=== PATIENT | female | born 1955 | race Two or more races ===

== ENCOUNTER 2017-07-14 07:23 | Day surgery (SDC) | payer BC ==
[2017-07-14] VITALS (17 sets, daily range): BP systolic 109–198; BP diastolic 55–92
[~2017-07-14] VITALS: Ht 152.4 cm; Wt 60.9 kg
[~2017-07-14 07:23] MED LIST: DIPH-423 PO; ERGO500014 PO; FOLI0.8T19 PO; INSU100V9 SQ; METO-411 PO; PRO30XLT PO
[2017-07-14] MEDS ORDERED: normal saline 1000ml 1,000 ML IV PRN (07:45)
[2017-07-14] MEDS ORDERED: FOLI0.8T7 PO (07:56)
[2017-07-14] MEDS ORDERED: CALC668T PO (08:00)
[2017-07-14] MEDS ORDERED: GABA100C PO (08:01)
[2017-07-14] MEDS ORDERED: LOSA25TA96 PO (08:03)
[2017-07-14] MEDS ORDERED: LIDOcaine 1%/PF (10mg/ml) 5ml vial SQ ONE (08:30)
[2017-07-14] MEDS ORDERED: heparin 1,000 UNITS/NS 500ml 500 ML ICATH ONE (08:30)
[2017-07-14] MEDS ORDERED: midazolam 2 mg/2 ml injection IV PRN (08:30)
[2017-07-14] MEDS ORDERED: fentaNYL/PF 50MCG/1 ML 2ML syringe IV PRN (08:30)
[2017-07-14] MEDS ORDERED: iohexol 300mg/ml 100ml inj. ONE (08:34)
[2017-07-14 08:48] LABS: BASOPHILS % (AUTO) 0.3 % (0-1); EOSINOPHILS # (AUTO) 0.3 X10'3 (0-0.9); EOSINOPHILS % (AUTO) 6.1 % (0-6); HEMATOCRIT 39.2 % (35.0-45.0); HEMOGLOBIN 13.4 g/dl (12.0-16.0); LYMPHOCYTES # (AUTO) 1.1 X10'3 (1.1-4.8); LYMPHOCYTES % (AUTO) 20.4 % (21-51); MEAN CORPUSCULAR HEMOGLOBIN 33.1 PG (27.0-31.0); MEAN CORPUSCULAR HGB CONC 34.2 % (33.0-36.5); MEAN CORPUSCULAR VOLUME 96.9 FL (78-98); MEAN PLATELET VOLUME 8.5 FL (7.4-10.4); MONOCYTES # (AUTO) 0.3 X10'3 (0-0.9); MONOCYTES % (AUTO) 6.4 % (2-12); NEUTROPHILS # (AUTO) 3.6 X10'3 (1.8-7.7); NEUTROPHILS % (AUTO) 66.8 % (42-75); PLATELET COUNT 169 X10'3 (140-440); RED BLOOD COUNT 4.04 X10'6 (4.20-5.60); RED CELL DISTRIBUTION WIDTH 16.9 % (11.5-14.5); WHITE BLOOD COUNT 5.4 X10'3 (4.5-11.0)
[2017-07-14] MEDS ORDERED: midazolam 2 mg/2 ml injection ONE (08:49)
[2017-07-14] MEDS ORDERED: heparin 1,000 UNITS/NS 500ml 500 ML ONE (08:49)
[2017-07-14] MEDS ORDERED: fentaNYL/PF 50MCG/1 ML 2ML syringe ONE ×2 (08:49→09:58)
[2017-07-14] MEDS ORDERED: hydrALAZINE 20mg/ml inj. IV ONE ×3 (09:11→10:40)
[2017-07-14] MEDS ORDERED: tPA-cathflo 2 MG/2 ml IV flush ONE (09:45)
[2017-07-14] MEDS ORDERED: tPA-cathflo 2 MG/2 ml IV flush IVF ONE (09:50)
[2017-07-14] MEDS ORDERED: ondansetron/PF 4mg/2ml inj ONE ×2 (09:56→10:36)
[2017-07-14] MEDS ORDERED: ondansetron/PF 4mg/2ml inj IV ONE (10:40)
[2017-07-14] MEDS ORDERED: HYDROcodone/acetaminophen 5mg/325mg tablet PO PRN (12:55)
[2017-07-14] MEDS ORDERED: HYDROcodone/acetaminophen 10/325mg tab PO PRN (12:55)
[2017-07-14] MEDS ORDERED: heparin 1,000unit/ml 10ml vial 10 ML ONE (14:22)
== END 2017-07-14 17:00 | disposition home or self-care (01) ==
LOC: SSTAY O 07:23
PROVIDERS: ATTEND Radiology Diagnostic Radiology
DX: T82.868A Thrombosis due to vascular prosthetic devices, implants and grafts, initial encounter (principal); E11.22 Type 2 diabetes mellitus with diabetic chronic kidney disease; I12.0 Hypertensive chronic kidney disease with stage 5 chronic kidney disease or end stage renal disease; N18.6 End stage renal disease; J44.9 Chronic obstructive pulmonary disease, unspecified; M19.90 Unspecified osteoarthritis, unspecified site; Z79.4 Long term (current) use of insulin; Z90.89 Acquired absence of other organs; Z98.890 Other specified postprocedural states; Z98.42 Cataract extraction status, left eye; Z79.899 Other long term (current) drug therapy; Y83.2 Surgical operation with anastomosis, bypass or graft as the cause of abnormal reaction of the patient, or of later complication, without mention of misadventure at the time of the procedure; Y92.89 Other specified places as the place of occurrence of the external cause
CPT/HCPCS: 36415; 36558; 36902; 76937; 77001; 82948; 85025; 99152; 99153; A6449; A9270; C1725; C1750; C1769; C1894; J0360; J1644; J2250; J2405; J2997; J3010; J7030; Q9967; A4620

== ENCOUNTER 2018-12-21 01:57 | Inpatient (IN) | payer BC, MEDICARE ==
[~2018-12-21] VITALS: Ht 157.5 cm; Wt 45.0 kg
[2018-12-21] VITALS (20 sets, daily range): BP systolic 104–179; BP diastolic 46–93
[~2018-12-21 01:57] MED LIST changes: +CALC668T PO; -DIPH-423 PO; -FOLI0.8T19 PO; +FOLI0.8T7 PO; +GABA100C PO; +LOSA25TA96 PO; -PRO30XLT PO
[2018-12-21 02:31] LABS: BASOPHILS % (AUTO) 0.3 % (0-1); EOSINOPHILS % (AUTO) 0.7 % (0-6); HEMATOCRIT 34.1 % (35.0-45.0); HEMOGLOBIN 11.5 g/dl (12.0-16.0); LYMPHOCYTES # (AUTO) 0.5 X10'3 (1.1-4.8); LYMPHOCYTES % (AUTO) 8.7 % (21-51); MEAN CORPUSCULAR HEMOGLOBIN 35.2 PG (27.0-31.0); MEAN CORPUSCULAR HGB CONC 33.7 g/dL (33.0-36.5); MEAN CORPUSCULAR VOLUME 104.4 FL (78-98); MEAN PLATELET VOLUME 9.4 FL (7.4-10.4); MONOCYTES # (AUTO) 0.3 X10'3 (0-0.9); MONOCYTES % (AUTO) 4.7 % (2-12); NEUTROPHILS # (AUTO) 5.3 X10'3 (1.8-7.7); NEUTROPHILS % (AUTO) 85.6 % (42-75); PLATELET COUNT 96 X10'3 (140-440); RED BLOOD COUNT 3.27 X10'6 (4.20-5.60); RED CELL DISTRIBUTION WIDTH 14.4 % (11.5-14.5); WHITE BLOOD COUNT 6.1 X10'3 (4.5-11.0)
[2018-12-21 02:37] LABS: ALANINE AMINOTRANSFERASE 24 U/L (12-78); ALBUMIN 3.4 G/DL (3.4-5.0); ALBUMIN/GLOBULIN RATIO 0.7 (1.1-1.5); ALKALINE PHOSPHATASE 242 IU/L (46-116); ANION GAP 7 (8-16); ASPARTATE AMINO TRANSFERASE 32 U/L (10-37); BILIRUBIN,TOTAL 0.7 MG/DL (0.1-1.0); BLOOD UREA NITROGEN 54 MG/DL (7-18); BUN/CREATININE RATIO 7.9 (6.6-38.0); CALCIUM 8.8 MG/DL (8.5-10.1); CHLORIDE 97 MMOL/L (99-107); CREATININE 6.85 MG/DL (0.40-0.90); GLUCOSE 289 MG/DL (70-104); SODIUM 133 MMOL/L (135-145); TOTAL CARBON DIOXIDE 28.6 MMOL/L (24-32); eGFR 6 ML/MIN
[2018-12-21 02:42] LABS: POTASSIUM 6.4 MMOL/L (3.5-5.1)
[2018-12-21] MEDS ORDERED: morphine 4 MG/ML inj SYRINge IV PRN (03:00)
[2018-12-21] MEDS ORDERED: morphine 2 MG/ML inj. syringe IV PRN (03:00)
[2018-12-21] MEDS ORDERED: ondansetron/PF 4mg/2ml inj IV PRN (03:00)
[2018-12-21] MEDS ORDERED: acetaminophen 325mg tablet PO PRN ×2 (03:00)
[2018-12-21] MEDS ORDERED: METO-539 PO (03:15)
[2018-12-21] MEDS ORDERED: NITR0.4T SL (03:15)
[2018-12-21] MEDS ORDERED: FURO-150 PO (03:15)
[2018-12-21] MEDS ORDERED: LISI40TA4 PO (03:15)
[2018-12-21] MEDS ORDERED: ASPI-1265 PO (03:15)
[2018-12-21] MEDS ORDERED: EPOE10005 (03:15)
[2018-12-21] MEDS ORDERED: AMLO10TA4 PO (03:15)
[2018-12-21] MEDS ORDERED: CALC0.253 PO (03:15)
[2018-12-21] MEDS ORDERED: ATOR20TA PO (03:15)
[2018-12-21] MEDS ORDERED: FURO-149 PO (03:15)
--- NOTE | 2018-12-21 03:19 | NUR ---
PT CONTINUES ON NITROGLYCERIN GTT (WAS RUNNING AT 150 MCG/MIN WHEN PT LEFT [facility]) AND DR. HIGH CONTINUED THIS UPON PTS ARRIVAL HERE. BP 143/74.
[2018-12-21] MEDS ORDERED: minoxidil 2.5mg tablet PO ONE (03:20)
--- NOTE | 2018-12-21 03:32 | NUR ---
PER Jaswinder HAMILTON, CONTINUE THE NIRTOGLYCERYN GTT AT 150 MCG/MIN. PT TO BE GIVEN TAB OF MINOXINIL AND HE REPORTS TO BEGIN TITRATING THE NGT DGG DOWN AT 5 MIN INTERVALS Q3 MIN. GOAL TO KEEP SBP UNDER 180.
--- NOTE | 2018-12-21 04:00 | NUR ---
pt with room assignment, 2044. Pt having medium soft light brown bm (some incontinence in diaper). 1 person assist to bsc. Report given to Ariel purdy.
[2018-12-21] MEDS: nitroGLYCERIN-Tridil 50MG/D5W 250 ML IV PRN ×3 (04:02→12:47)
--- NOTE | 2018-12-21 06:20 | NUR ---
Patient in room ICU 2044. I have received report from ANNA MARIE Francis and had the opportunity to ask questions and assume patient care.
[2018-12-21] MEDS: pantoprazole 40mg Tablet.DR PO SCH (08:40)
[2018-12-21] MEDS ORDERED: normal saline 1000ml 250 ML IV PRN (09:59)
[2018-12-21] MEDS ORDERED: LIDOcaine 1% (10mg/ml) 2ml vial SQ ONE (10:00)
[2018-12-21] MEDS ORDERED: heparin 1,000 units/ml 10ml inj IV ONE (10:00)
[2018-12-21] MEDS ORDERED: insulin Lispro (HumaLOG) vial - multi-dose SQ SCH (10:45)
[2018-12-21] MEDS ORDERED: MESSAGE TO PHARMACY PO ONE (10:45)
[2018-12-21] MEDS ORDERED: dextrose ORAL solution 15 GM/59 ML bottle PO PRN ×2 (10:45)
[2018-12-21] MEDS ORDERED: dextrose 50%-water 50ml dispensing syringe IV PRN ×2 (10:45)
[2018-12-21] MEDS ORDERED: glucagon, human recombinant 1mg kit SUBCUT PRN (10:45)
[2018-12-21] MEDS: calcium acetate 667mg (PhosLO) capsule PO SCH ×2 (13:00→18:11)
[2018-12-21 13:06] LABS: HEMOGLOBIN A1C 5.9 % (4.5-6.2); TROPONIN I 0.44 NG/ML (0.0-0.05)
[2018-12-21] MEDS: amLODIPine 5mg tablet PO SCH (16:36)
[2018-12-21] MEDS: calcitriol 0.25mcg capsule PO SCH (16:36)
[2018-12-21] MEDS: lisinopril 20mg tablet PO SCH (16:37)
--- NOTE | 2018-12-21 18:27 | NUR ---
Problems reprioritized. Patient report given, questions answered & plan of care reviewed with Nu THRASHER.
--- NOTE | 2018-12-21 18:39 | NUR ---
183..Patient in room ICU 2044. I have received report from Ana THRASHER and had the opportunity to ask questions and assume patient care.
[2018-12-21] MEDS: furosemide 10 MG/1 ML 10ml inj IV SCH (20:00)
[2018-12-21] MEDS ORDERED: insulin glargine (Lantus) pen - multi-dose SQ SCH (21:00)
[2018-12-21] MEDS ORDERED: INSULIN GLARGINE HUM REC ANLOG 40 UNIT SQ SCH (21:00)
--- NOTE | 2018-12-21 21:58 | NUR ---
2000..Assessment as noted denies any complaints.
[2018-12-22] VITALS (10 sets, daily range): BP systolic 113–129; BP diastolic 47–83
--- NOTE | 2018-12-22 00:42 | NUR ---
0000..Resting quietly,eyes closed,resp easy and unlabored. No other changes noted.
--- NOTE | 2018-12-22 04:33 | NUR ---
0400..No changes noted.
--- NOTE | 2018-12-22 06:15 | NUR ---
0615..Problems reprioritized. Patient report given, questions answered & plan of care reviewed with Octavia THRASHER.
[2018-12-22 06:22] LABS: BASOPHILS % (AUTO) 0.7 % (0-1); EOSINOPHILS # (AUTO) 0.2 X10'3 (0-0.9); EOSINOPHILS % (AUTO) 3.6 % (0-6); HEMATOCRIT 33.4 % (35.0-45.0); HEMOGLOBIN 11.2 g/dl (12.0-16.0); LYMPHOCYTES # (AUTO) 0.9 X10'3 (1.1-4.8); LYMPHOCYTES % (AUTO) 20.3 % (21-51); MEAN CORPUSCULAR HEMOGLOBIN 34.6 PG (27.0-31.0); MEAN CORPUSCULAR HGB CONC 33.7 g/dL (33.0-36.5); MEAN CORPUSCULAR VOLUME 102.8 FL (78-98); MEAN PLATELET VOLUME 9.7 FL (7.4-10.4); MONOCYTES # (AUTO) 0.4 X10'3 (0-0.9); NEUTROPHILS # (AUTO) 2.8 X10'3 (1.8-7.7); NEUTROPHILS % (AUTO) 65.4 % (42-75); PLATELET COUNT 103 X10'3 (140-440); RED BLOOD COUNT 3.25 X10'6 (4.20-5.60); RED CELL DISTRIBUTION WIDTH 14.4 % (11.5-14.5); WHITE BLOOD COUNT 4.2 X10'3 (4.5-11.0)
--- NOTE | 2018-12-22 06:24 | NUR ---
Patient in room ICU 2044. I have received report from ANNA MARIE Galvez and had the opportunity to ask questions and assume patient care.
[2018-12-22 06:30] LABS: ALANINE AMINOTRANSFERASE 23 U/L (12-78); ALBUMIN/GLOBULIN RATIO 0.7 (1.1-1.5); ALKALINE PHOSPHATASE 214 IU/L (46-116); ANION GAP 8 (8-16); ASPARTATE AMINO TRANSFERASE 39 U/L (10-37); BILIRUBIN,TOTAL 0.9 MG/DL (0.1-1.0); BLOOD UREA NITROGEN 24 MG/DL (7-18); CALCIUM 8.6 MG/DL (8.5-10.1); CHLORIDE 98 MMOL/L (99-107); CREATININE 3.99 MG/DL (0.40-0.90); GLUCOSE 127 MG/DL (70-104); MAGNESIUM 1.9 MG/DL (1.5-2.4); SODIUM 136 MMOL/L (135-145); TOTAL CARBON DIOXIDE 30.1 MMOL/L (24-32); TOTAL PROTEIN 7.6 G/DL (6.4-8.2); eGFR 11 ML/MIN
[2018-12-22] MEDS: pantoprazole 40mg Tablet.DR PO SCH (07:27)
[2018-12-22] MEDS ORDERED: atorvastatin 20mg tablet PO SCH (08:00)
[2018-12-22] MEDS ORDERED: metoprolol succinate 25mg (24-HOUR) SR. Tablet PO SCH (08:00)
[2018-12-22] MEDS ORDERED: aspirin 81mg tab.chew PO SCH (08:00)
[2018-12-22] MEDS ORDERED: folic acid/vitamin B complex w/vitamin C 0.8mg tablet PO SCH (08:00)
[2018-12-22] MEDS: furosemide 10 MG/1 ML 10ml inj IV SCH (08:47)
[2018-12-22] MEDS: calcitriol 0.25mcg capsule PO SCH (08:47)
[2018-12-22] MEDS: amLODIPine 5mg tablet PO SCH (08:47)
[2018-12-22] MEDS: calcium acetate 667mg (PhosLO) capsule PO SCH (08:48)
[2018-12-22] MEDS: lisinopril 20mg tablet PO SCH (08:48)
--- NOTE | 2018-12-22 10:06 | NUR ---
DM consult: Pt with A1c 5.9, DM education not warranted at this time. Will continue to follow. Addendum: 12/22/18 at [address] Amended: Links added.
--- NOTE | 2018-12-22 10:33 | NUR ---
Patient discharge to home. Picked up by in private vehicle. Pt ambulated independently to car with all belongings and discharge paperwork. Pt and are primarily Kyrgyz speaking able to understand some lithuanian, also provided information and instructions to lithuanian speaking daughter on telephone. Advised to continue home medications as directed and follow up with Cardiologists and PCP. DM survival skills provided with Hgb A1c level highlighted.
[2018-12-23] MEDS ORDERED: ergocalciferol (Vitamin D) 50,000 unit capsule PO SCH (08:00)
[2018-12-26] MEDS ORDERED: ergocalciferol (Vitamin D) 50,000 unit capsule PO SCH (11:35)
== END 2018-12-22 10:00 | disposition home or self-care (01) | DRG 304 ==
LOC: ER 01:58 → ED HOLD 03:59 → ICU 2S 04:24
PROVIDERS: ADMIT Internal Medicine; ATTEND Internal Medicine Critical Care Medicine
PROC: 5A1D70Z Performance of Urinary Filtration, Intermittent, Less than 6 Hours Per Day (ICD-10-PCS; principal; 2018-12-21)
DX: I16.1 Hypertensive emergency (principal); N18.6 End stage renal disease; E11.22 Type 2 diabetes mellitus with diabetic chronic kidney disease; E87.5 Hyperkalemia; E87.70 Fluid overload, unspecified; I12.0 Hypertensive chronic kidney disease with stage 5 chronic kidney disease or end stage renal disease; J44.9 Chronic obstructive pulmonary disease, unspecified; Z90.49 Acquired absence of other specified parts of digestive tract; Z99.2 Dependence on renal dialysis; Z56.0 Unemployment, unspecified; Z79.899 Other long term (current) drug therapy
CPT/HCPCS: 36415; 71045; 80053; 82948; 83036; 83735; 84100; 84484; 85025; 87081; 93005; 99285; G0257; G0378; J1644; J1815; J1940; J2001; J2405; J3490

== ENCOUNTER 2020-10-28 23:33 | Inpatient (IN) | payer BC, MEDICARE ==
[~2020-10-28] VITALS: Ht 160 cm; Wt 62.0 kg
[~2020-10-28 23:33] MED LIST changes: +AMLO10TA4 PO; +ASPI-1265 PO; +ATOR20TA PO; +CALC0.253 PO; +EPOE10005; +FURO-150 PO; -GABA100C PO; +LISI40TA13 PO; -LOSA25TA96 PO; -METO-411 PO; +METO-539 PO; +NITR0.4T SL
[2020-10-28] MEDS ORDERED: heparin 25,000 UNIT/250ml bag 250 ML IV SCH (23:40)
[2020-10-28] MEDS ORDERED: heparin 10,000 units/1 ML INJ IV PRN (23:40)
[2020-10-29 00:23] LABS: PARTIAL THROMBOPLASTIN TIME > 139 SECONDS (22-32)
[2020-10-29] MEDS ORDERED: magnesium hydroxide 30ml (MOM) UD suspension PO PRN (00:35)
[2020-10-29] MEDS ORDERED: mag hydrox/Alum hydrox/simeth 30ml oral suspension PO PRN (00:35)
[2020-10-29] MEDS ORDERED: ondansetron/PF 4mg/2ml inj IV PRN (00:35)
[2020-10-29] MEDS ORDERED: acetaminophen 325mg tablet PO PRN (00:35)
[2020-10-29] MEDS ORDERED: ATOR40TA PO (00:37)
[2020-10-29] MEDS ORDERED: BENA20TA82 PO (00:37)
[2020-10-29] MEDS ORDERED: CIPR250S2 PO (00:37)
[2020-10-29] MEDS ORDERED: CARV-50 PO (00:37)
[2020-10-29] MEDS ORDERED: carvedilol 6.25mg tablet PO ONE (00:40)
[2020-10-29] MEDS ORDERED: ergocalciferol (vit D2) capsule 50,000 UNITS (1,250mcg) CAPSULE PO SCH (00:55)
[2020-10-29] MEDS ORDERED: nitroGLYCERIN 0.4mg SUBLingual tab SL PRN (00:55)
[2020-10-29] MEDS ORDERED: MESSAGE TO PHARMACY PO ONE (01:00)
[2020-10-29] MEDS ORDERED: glucagon, human recombinant 1mg kit SUBCUT PRN (01:00)
[2020-10-29] MEDS ORDERED: insulin Lispro (HumaLOG) vial - multi-dose SQ SCH (01:00)
[2020-10-29] MEDS ORDERED: dextrose 50%-water 50ml dispensing syringe IV PRN ×2 (01:00)
[2020-10-29] MEDS ORDERED: dextrose ORAL solution 15 GM/59 ML bottle PO PRN ×2 (01:00)
[2020-10-29 02:40] LABS: BASOPHILS % (AUTO) 0.2 % (0-1); EOSINOPHILS % (AUTO) 0 % (0-6); HEMATOCRIT 35.6 % (35.0-45.0); HEMOGLOBIN 11.6 g/dl (12.0-16.0); LYMPHOCYTES # (AUTO) 0.5 X10'3 (1.1-4.8); LYMPHOCYTES % (AUTO) 7.7 % (21-51); MEAN CORPUSCULAR HEMOGLOBIN 34.7 PG (27.0-31.0); MEAN CORPUSCULAR HGB CONC 32.7 g/dL (33.0-36.5); MEAN CORPUSCULAR VOLUME 106.2 FL (78-98); MONOCYTES # (AUTO) 0.4 X10'3 (0-0.9); MONOCYTES % (AUTO) 6.3 % (2-12); NEUTROPHILS # (AUTO) 5.7 X10'3 (1.8-7.7); NEUTROPHILS % (AUTO) 85.8 % (42-75); PLATELET COUNT 96 X10'3 (140-440); RED BLOOD COUNT 3.35 X10'6 (4.20-5.60); RED CELL DISTRIBUTION WIDTH 16.4 % (11.5-14.5); WHITE BLOOD COUNT 6.6 X10'3 (4.5-11.0)
[2020-10-29] MEDS ORDERED: nitroGLYCERIN 0.2mg/hour patch TD SCH (03:20)
[2020-10-29] MEDS ORDERED: furosemide 20MG tablet PO SCH (08:00)
[2020-10-29] MEDS ORDERED: docusate sod 100mg capsule PO SCH (08:00)
[2020-10-29] MEDS ORDERED: lisinopril 20mg tablet PO SCH (08:00)
[2020-10-29] MEDS ORDERED: aspirin 81mg tab.chew PO SCH (08:00)
[2020-10-29] MEDS ORDERED: calcitriol 0.25mcg capsule PO SCH (08:00)
[2020-10-29] MEDS ORDERED: atorvastatin 20mg tablet PO SCH ×2 (08:00→13:26)
[2020-10-29] MEDS ORDERED: carVEDilol 12.5mg tablet PO SCH ×2 (08:00→13:27)
[2020-10-29] MEDS ORDERED: folic acid/vitamin B complex w/vitamin C 0.8mg tablet PO SCH (08:00)
[2020-10-29] MEDS: calcium acetate 667mg (PhosLO) capsule PO SCH ×2 (09:47→12:48)
[2020-10-29] MEDS ORDERED: ciprofloxacin 250mg tablet PO SCH (10:00)
[2020-10-29] MEDS ORDERED: PERFLUTREN PROTEIN-A MICROSPHR (Optison) 0.22 MG/ML 3ML VIAL IV ONE (10:00)
[2020-10-29] MEDS ORDERED: hydrALAZINE 20mg/ml inj. IV PRN (10:00)
[2020-10-29 10:51] LABS: ALANINE AMINOTRANSFERASE 28 U/L (12-78); ALBUMIN 3.3 G/DL (3.4-5.0); ALBUMIN/GLOBULIN RATIO 0.7 (1.1-1.5); ALKALINE PHOSPHATASE 170 IU/L (46-116); ANION GAP 15 (8-16); ASPARTATE AMINO TRANSFERASE 26 U/L (10-37); BILIRUBIN,TOTAL 0.8 MG/DL (0.1-1.0); BLOOD UREA NITROGEN 46 MG/DL (7-18); BUN/CREATININE RATIO 7.1 (6.6-38.0); CALCIUM 8.2 MG/DL (8.5-10.1); CHLORIDE 95 MMOL/L (99-107); CREATININE 6.49 MG/DL (0.40-0.90); GLUCOSE 238 MG/DL (70-104); POTASSIUM 4.3 MMOL/L (3.5-5.1); SODIUM 136 MMOL/L (135-145); TOTAL CARBON DIOXIDE 26.2 MMOL/L (24-32); TOTAL PROTEIN 8.1 G/DL (6.4-8.2); eGFR 6 ML/MIN
[2020-10-29 11:00] VITALS: BP 177/81
[2020-10-29] MEDS ORDERED: amLODIPine 5mg tablet PO SCH (13:19)
--- NOTE | 2020-10-29 14:42 | NUR ---
PAGE SENT PAGER ID: [phone] MESSAGE: AISHA, [id number], PT REPORTS SHE DOESN'T USE O2 AT HOME. O2 REMOVED, PT AT 99%. PT CAN AMBULATE 10 MINUTES WITH A CANE. THANK YOU, BETI [id number]
[2020-10-29 15:00] VITALS: BP 172/76
--- NOTE | 2020-10-29 16:20 | NUR ---
PT STABLE FOR DISCHARGE PER MD. BELONGINGS RETURNED TO PT. DISCHARGE AND FOLLOW UP INSTRUCTIONS EXPLAINED AND PT AND HER WERE GIVEN OPPORTUNITY TO ASK QUESTIONS. PIV REMOVED WITH TIP INTACT, PROCEDURE TOLERATED WELL BY PT.PT WAS TRANSFERRED TO A PRIVATE VEHICLE BY STAFF. PT WAS DISCHARGED TO HOME.
[2020-10-29] MEDS ORDERED: insulin glargine (Lantus) pen - multi-dose SQ SCH ×2 (21:00)
[2020-10-30] MEDS ORDERED: ergocalciferol (vit D2) capsule 50,000 UNITS (1,250mcg) CAPSULE PO SCH (08:00)
== END 2020-10-29 18:10 | disposition home or self-care (01) | DRG 280 ==
LOC: ER 23:34 → ED HOLD 10-29 00:33 → PCU 3S 10-29 11:05
PROVIDERS: ADMIT Internal Medicine; ATTEND Family Medicine
DX: I16.1 Hypertensive emergency (principal); I21.A1 Myocardial infarction type 2; N18.6 End stage renal disease; J90 Pleural effusion, not elsewhere classified; I12.0 Hypertensive chronic kidney disease with stage 5 chronic kidney disease or end stage renal disease; D69.6 Thrombocytopenia, unspecified; E11.22 Type 2 diabetes mellitus with diabetic chronic kidney disease; E78.5 Hyperlipidemia, unspecified; I34.0 Nonrheumatic mitral (valve) insufficiency; J44.9 Chronic obstructive pulmonary disease, unspecified; Z79.4 Long term (current) use of insulin; Z83.3 Family history of diabetes mellitus; Z90.49 Acquired absence of other specified parts of digestive tract; Z99.2 Dependence on renal dialysis; Z56.0 Unemployment, unspecified; Z79.899 Other long term (current) drug therapy; Z79.82 Long term (current) use of aspirin
CPT/HCPCS: 36415; 80053; 82948; 83036; 84484; 85025; 85610; 85730; 93005; 93306; 96374; 99285; G0378; J0360; J1644; J1815